=== PATIENT | female | born 1930 | race Caucasian/White ===

== ENCOUNTER 2017-09-15 17:59 | Emergency (ER) | payer SELFPAY ==
[~2017-09-15] VITALS: Ht 152.4 cm; Wt 54.5 kg
[2017-09-15 18:05] VITALS: Ht 152.4 cm; Wt 54.5 kg
[2017-09-15] MEDS ORDERED: HYDROCHLOROTHIA25 MG PO (18:08)
[2017-09-15] MEDS ORDERED: DEXILANT30 MG PO (18:08)
[2017-09-15] MEDS ORDERED: PRAVACHOL40 MG PO (18:08)
[2017-09-15] MEDS ORDERED: COZAAR100 MG PO (18:08)
[2017-09-15] MEDS ORDERED: LEXAPRO20 MG PO (18:08)
[2017-09-15] MEDS ORDERED: SYNTHROID50 MCG PO (18:09)
[2017-09-15] MEDS ORDERED: BUPROPION HCL75 MG PO (18:09)
[2017-09-15] MEDS ORDERED: FLORANEX / LACT1 TAB PO (18:09)
[2017-09-15] MEDS ORDERED: RESTORIL15 MG PO (18:09)
[2017-09-15] MEDS ORDERED: ZOFRAN4 MG PO (18:10)
[2017-09-15] MEDS ORDERED: HYDROCODON-ACE1 EAC7 PO (18:10)
[2017-09-15 19:12] LABS: BASOPHILS 0.6 % (0-2); EOSINOPHILS 5.4 % (0-7); HEMATOCRIT 36.6 % (36.0-48.0); HEMOGLOBIN 12.8 g/dL (12-16); IMMATURE GRANULOCYTES 0.4 % (0-5); LYMPHOCYTES 15.7 % (15-50); MCV 88.6 fL (80.0-100.0); MEAN PLATELET VOLUME 8.6 fL (7.4-10.4); MONOCYTES 10.7 % (2-11); NEUTROPHILS 67.2 % (40-80); PLATELET COUNT 239 10x3/uL (130-400); RBC 4.13 10x6/uL (4.00-5.40); RDW 13.2 % (11.5-14.5); WBC 6.8 10x3/uL (4.8-10.8)
[2017-09-15 21:05] LABS: APPEARANCE CLEAR (CLEAR); BILIRUBIN NEGATIVE (NEGATIVE); COLOR YELLOW (YELLOW); GLUCOSE NEGATIVE (NEGATIVE); KETONE NEGATIVE (NEGATIVE); NITRITE NEGATIVE (NEGATIVE); PROTEIN NEGATIVE (NEGATIVE); UROBILINOGEN NORMAL (NORMAL)
[2017-09-15 21:07] LABS: ALBUMIN 3.4 g/dL (3.4-5.0); BILIRUBIN - TOTAL 0.37 mg/dL (0.2-1.3); CARBON DIOXIDE 30.3 mmol/L (21.0-32.0); CREATININE - SERUM 1.2 mg/dL (0.6-1.3); POTASSIUM - SERUM 4.3 mmol/L (3.5-5.1); PROTEIN - SERUM 7.5 g/dL (6.4-8.2)
[2017-09-15 21:08] LABS: EPITHELIAL CELLS OCC /hpf (0-5); RED CELLS - URINE 0-5 /hpf (0-5); WHITE CELLS - URINE 0-5 /hpf (0-5)
[2017-09-15 21:09] LABS: BACTERIA MANY /hpf (NONE SEEN)
[2017-09-15] MEDS ORDERED: OMNICEF300 MG PO (21:15)
[2017-09-15] MEDS ORDERED: ZPAK PO (21:15)
[2017-09-15 22:20] VITALS: BP 119/62
[2017-09-26 13:12] VITALS: Ht 152.4 cm; Wt 54.5 kg
== END 2017-09-15 23:00 ==
LOC: D.ER 17:59
PROVIDERS: Family Medicine
DX: E87.1 Hypo-osmolality and hyponatremia (principal); R73.9 Hyperglycemia, unspecified; J18.9 Pneumonia, unspecified organism; K21.9 Gastro-esophageal reflux disease without esophagitis; N18.9 Chronic kidney disease, unspecified; W18.2XXA Fall in (into) shower or empty bathtub, initial encounter; Y93.E1 Activity, personal bathing and showering; Y92.89 Other specified places as the place of occurrence of the external cause

== ENCOUNTER 2017-09-25 14:03 | Inpatient (IN) | payer MEDICARE, BC, MEDICAID ==
[~2017-09-25] VITALS: Ht 152.4 cm; Wt 71.8 kg
[~2017-09-25 14:03] MED LIST: BUPROPION HCL75 MG PO; COZAAR100 MG PO; DEXILANT30 MG PO; FLORANEX / LACT1 TAB PO; HYDROCHLOROTHIA25 MG PO; HYDROCODON-ACE1 EAC7 PO; LEXAPRO20 MG PO; OMNICEF300 MG PO; PRAVACHOL40 MG PO; RESTORIL15 MG PO; SYNTHROID50 MCG PO; ZOFRAN4 MG PO; ZPAK PO
[2017-09-25] MEDS ORDERED: MUCINEX DM ER1 EAC1 PO (14:10)
[2017-09-25] MEDS ORDERED: VITAMIN D31000 UNI2 PO (14:11)
[2017-09-25 16:55] LABS: BASOPHILS 0.5 % (0-2); EOSINOPHILS 7.1 % (0-7); HEMATOCRIT 31.5 % (36.0-48.0); HEMOGLOBIN 10.8 g/dL (12-16); IMMATURE GRANULOCYTES 0.5 % (0-5); LYMPHOCYTES 21.6 % (15-50); MCH 30.7 pg (26.0-34.0); MCHC 34.3 g/dL (31.0-37.0); MCV 89.5 fL (80.0-100.0); MEAN PLATELET VOLUME 8.5 fL (7.4-10.4); MONOCYTES 9.1 % (2-11); NEUTROPHILS 61.2 % (40-80); PLATELET COUNT 235 10x3/uL (130-400); RBC 3.52 10x6/uL (4.00-5.40); RDW 13.5 % (11.5-14.5); WBC 5.9 10x3/uL (4.8-10.8)
[2017-09-25 17:09] LABS: ANION GAP 9.4 mmol/L (8-16); BILIRUBIN - TOTAL 0.31 mg/dL (0.2-1.3); CARBON DIOXIDE 30.7 mmol/L (21.0-32.0); CREATININE - SERUM 1.3 mg/dL (0.6-1.3); POTASSIUM - SERUM 4.1 mmol/L (3.5-5.1); PROTEIN - SERUM 6.9 g/dL (6.4-8.2)
[2017-09-25 17:25] VITALS: BP 174/62
[2017-09-25 17:36] LABS: APPEARANCE CLEAR (CLEAR); BILIRUBIN NEGATIVE (NEGATIVE); COLOR YELLOW (YELLOW); GLUCOSE NEGATIVE (NEGATIVE); KETONE NEGATIVE (NEGATIVE); NITRITE NEGATIVE (NEGATIVE); PROTEIN NEGATIVE (NEGATIVE); SPECIFIC GRAVITY 1.015 (1.005-1.020); UROBILINOGEN NORMAL (NORMAL)
[2017-09-25 19:51] VITALS: BP 148/71; BMI 32.6
[2017-09-25 21:09] VITALS: BP 148/71
[2017-09-26 01:28] VITALS: BP 144/60
[2017-09-26 05:13] LABS: BASOPHILS 0.7 % (0-2); EOSINOPHILS 6.9 % (0-7); HEMATOCRIT 34.3 % (36.0-48.0); HEMOGLOBIN 11.8 g/dL (12-16); IMMATURE GRANULOCYTES 0.4 % (0-5); LYMPHOCYTES 29.8 % (15-50); MCH 30.7 pg (26.0-34.0); MCHC 34.4 g/dL (31.0-37.0); MCV 89.3 fL (80.0-100.0); MEAN PLATELET VOLUME 8.7 fL (7.4-10.4); MONOCYTES 8.3 % (2-11); NEUTROPHILS 53.9 % (40-80); PLATELET COUNT 282 10x3/uL (130-400); RBC 3.84 10x6/uL (4.00-5.40); RDW 13.4 % (11.5-14.5)
[2017-09-26 05:33] LABS: ALBUMIN 3.4 g/dL (3.4-5.0); ANION GAP 14.8 mmol/L (8-16); BILIRUBIN - TOTAL 0.42 mg/dL (0.2-1.3); CALCIUM 8.9 mg/dL (8.5-10.1); CARBON DIOXIDE 23.3 mmol/L (21.0-32.0); CREATININE - SERUM 1.3 mg/dL (0.6-1.3); POTASSIUM - SERUM 4.1 mmol/L (3.5-5.1); PROTEIN - SERUM 7.3 g/dL (6.4-8.2)
[2017-09-26 05:39] VITALS: BP 130/67
[2017-09-26 08:16] VITALS: BP 149/64
[2017-09-26 11:25] VITALS: BP 140/69
[2017-09-26 13:12] VITALS: Ht 152.4 cm; Wt 71.8 kg
[2017-09-26 15:31] VITALS: BP 164/71
[2017-09-26 20:00] VITALS: BP 156/67
[2017-09-27] VITALS: BP 164/71
[2017-09-27 04:00] VITALS: BP 148/61
[2017-09-27 05:32] LABS: BASOPHILS 0.9 % (0-2); EOSINOPHILS 8.7 % (0-7); HEMATOCRIT 31.6 % (36.0-48.0); HEMOGLOBIN 10.8 g/dL (12-16); IMMATURE GRANULOCYTES 0.4 % (0-5); LYMPHOCYTES 20.4 % (15-50); MCH 30.4 pg (26.0-34.0); MCHC 34.2 g/dL (31.0-37.0); MEAN PLATELET VOLUME 8.7 fL (7.4-10.4); MONOCYTES 11.9 % (2-11); NEUTROPHILS 57.7 % (40-80); PLATELET COUNT 252 10x3/uL (130-400); RBC 3.55 10x6/uL (4.00-5.40); RDW 13.3 % (11.5-14.5); WBC 5.4 10x3/uL (4.8-10.8)
[2017-09-27 05:51] LABS: ANION GAP 8.5 mmol/L (8-16); CALCIUM 8.9 mg/dL (8.5-10.1); CREATININE - SERUM 1.2 mg/dL (0.6-1.3); POTASSIUM - SERUM 3.7 mmol/L (3.5-5.1)
[2017-09-27 05:55] LABS: CARBON DIOXIDE 30.2 mmol/L (21.0-32.0)
[2017-09-27 08:57] VITALS: BP 130/68
[2017-09-27 11:51] VITALS: BP 133/51
[2017-09-27 15:51] VITALS: BP 138/63
[2017-09-27 20:00] VITALS: BP 147/68
[2017-09-28 04:00] VITALS: BP 160/64
[2017-09-28 05:38] LABS: ANION GAP 11.4 mmol/L (8-16); CARBON DIOXIDE 25.8 mmol/L (21.0-32.0); POTASSIUM - SERUM 4.2 mmol/L (3.5-5.1)
[2017-09-28 08:55] VITALS: BP 143/71
[2017-09-28 16:07] VITALS: BP 125/71
[2017-09-28 20:15] VITALS: BP 146/77
[2017-09-29 00:05] VITALS: BP 146/64
[2017-09-29 05:25] VITALS: BP 141/62
[2017-09-29 06:38] LABS: ANION GAP 10.3 mmol/L (8-16); CARBON DIOXIDE 28.5 mmol/L (21.0-32.0); POTASSIUM - SERUM 3.8 mmol/L (3.5-5.1)
[2017-09-29 08:46] VITALS: BP 144/63
[2017-09-29 12:06] VITALS: BP 122/54
== END 2017-09-29 14:22 | DRG 641 ==
LOC: D.ER 14:03 → D.EDHOLD 18:41 → D.M2 18:41
PROVIDERS: Family Medicine
DX: E87.1 Hypo-osmolality and hyponatremia (principal); E86.0 Dehydration; W01.0XXA Fall on same level from slipping, tripping and stumbling without subsequent striking against object, initial encounter; E78.5 Hyperlipidemia, unspecified; D64.9 Anemia, unspecified; I10 Essential (primary) hypertension; M19.90 Unspecified osteoarthritis, unspecified site; F41.8 Other specified anxiety disorders; G47.00 Insomnia, unspecified; E03.9 Hypothyroidism, unspecified; K21.9 Gastro-esophageal reflux disease without esophagitis; M50.30 Other cervical disc degeneration, unspecified cervical region; E55.9 Vitamin D deficiency, unspecified; R55 Syncope and collapse